=== PATIENT | male | born 1975 | race Caucasian/White ===

== ENCOUNTER 2020-11-11 09:09 | Emergency (ER) | payer BC ==
[~2020-11-11] VITALS: Ht 180.3 cm; Wt 127.0 kg
[2020-11-11] MEDS ORDERED: ASPIRIN 81 MG CHEW TAB PO ONE (09:30)
[2020-11-11 12:06] VITALS: BP 148/90
== END 2020-11-11 11:43 | disposition home or self-care (01) ==
LOC: FSED 09:45
DX: R07.9 Chest pain, unspecified (principal); F17.210 Nicotine dependence, cigarettes, uncomplicated
CPT/HCPCS: 71045; 93005; 99284